=== PATIENT | male | born 1960 | race Caucasian/White ===

== ENCOUNTER 2018-06-11 09:48 | Outpatient (CLI) | payer MEDICARE, MEDICAID ==
--- NOTE | 2018-06-11 11:30 | NUR ---
Patient ambulated independently from [facility] accompanied by his girlfriend and was admitted to outpatient wound care for physician visit with Vimal Newsome MD. Placed in contact isolation precautions per hospital policy. Dressing removed. New patient assessment completed with review of patient's medical history and current medications. 1045 - Dr. Newsome at bedside accompanied by RN. Wound assessed by MD; orders written. Plan of care discussed with patient. Dressings placed per MD orders. Patient instructed on the signs and symptoms of infection and to call the Wound Center if any occur or to go to the ED if we are closed: Increased pain in wound Increase in drainage from the wound Redness in the skin surrounding the wound Bleeding from the wound Temperature of 101 or greater Patient instructed that the weight of their body puts a large amount of pressure on their wounds. This pressure keeps the new tissue from growing and inhibits new blood vessels from forming. Explained that, if they continue to bear weight on a body part that has a wound, the time it takes to heal the wound increases, the wound may get worse or the wound may not heal at all. Patient verbalized understanding of all discharge instructions and plan of care and ambulated independently accompanied by his out to [facility] in stable condition with no sign or symptom of distress at time of discharge.
[2018-06-11] MEDS ORDERED: NO HOME MEDS (14:32)
== END 2018-06-11 11:26 | disposition home or self-care (01) ==
LOC: WOUND CARE 09:48
PROVIDERS: ATTEND Surgery
DX: L97.512 Non-pressure chronic ulcer of other part of right foot with fat layer exposed (principal); J45.909 Unspecified asthma, uncomplicated; G89.29 Other chronic pain
CPT/HCPCS: 73620; G0463; A6196; A6446; L3260

== ENCOUNTER 2018-06-18 10:04 | Outpatient (CLI) | payer MEDICARE, MEDICAID ==
[~2018-06-18 10:04] MED LIST: NO HOME MEDS
--- NOTE | 2018-06-18 14:51 | NUR ---
Patient ambulated independently from [facility] and was admitted to outpatient wound care for physician visit with Vimal Newsome MD. Dressing removed and wound cleansed. Patient assessed for changes in conditions, medications and medical history. Dr. Newsome at bedside accompanied by RN. Wound assessed and no debridement was done. Plan of care discussed with patient. Dressings placed per MD orders. Patient instructed on the signs and symptoms of infection and to call the Wound Center if any occur or to go to the ED if we are closed: Increased pain in wound Increase in drainage from the wound Redness in the skin surrounding the wound Bleeding from the wound Temperature of 101 or greater Patient instructed that the weight of their body puts a large amount of pressure on their wounds. This pressure keeps the new tissue from growing and inhibits new blood vessels from forming. Explained that, if they continue to bear weight on a body part that has a wound, the time it takes to heal the wound increases, the wound may get worse or the wound may not heal at all. Patient verbalized understanding of all discharge instructions and plan of care and ambulated independently out to [facility] in stable condition with no sign or symptom of distress at time of discharge. Addendum: 06/18/18 at 1453 by Lizbeth Kelsey RN Amended: Links added.
== END 2018-06-18 11:26 | disposition home or self-care (01) ==
LOC: WOUND CARE 10:04
PROVIDERS: ATTEND Surgery
DX: L97.512 Non-pressure chronic ulcer of other part of right foot with fat layer exposed (principal); J45.909 Unspecified asthma, uncomplicated; G89.29 Other chronic pain
CPT/HCPCS: A4414; G0463

== ENCOUNTER 2018-10-27 18:36 | Inpatient (IN) | payer MEDICARE, MEDICAID ==
[~2018-10-27] VITALS: Ht 172.7 cm; Wt 73.2 kg
[2018-10-27] MEDS ORDERED: ibuprofen tablet 400 MG TABLET PO ONE (19:20)
[2018-10-27] MEDS ORDERED: HYDROcodone/acetaminophen 5mg/325mg tablet PO ONE (19:20)
[2018-10-27] MEDS ORDERED: ibuprofen 200mg tablet PO ONE (19:25)
[2018-10-27 20:07] LABS: BASOPHILS # (AUTO) 0.1 X10'3 (0-0.2); BASOPHILS % (AUTO) 0.3 % (0-1); EOSINOPHILS % (AUTO) 0.1 % (0-6); LYMPHOCYTES # (AUTO) 2.4 X10'3 (1.1-4.8); LYMPHOCYTES % (AUTO) 14.8 % (21-51); MEAN CORPUSCULAR HEMOGLOBIN 30.9 PG (27.0-31.0); MEAN CORPUSCULAR HGB CONC 34.1 g/dL (33.0-36.5); MEAN CORPUSCULAR VOLUME 90.5 FL (78-98); MEAN PLATELET VOLUME 7.3 FL (7.4-10.4); MONOCYTES # (AUTO) 2.3 X10'3 (0-0.9); MONOCYTES % (AUTO) 13.7 % (2-12); NEUTROPHILS # (AUTO) 11.6 X10'3 (1.8-7.7); NEUTROPHILS % (AUTO) 71.1 % (42-75); PLATELET COUNT 224 X10'3 (140-440); RED BLOOD COUNT 5.19 X10'6 (4.70-6.10); RED CELL DISTRIBUTION WIDTH 14.3 % (11.5-14.5); WHITE BLOOD COUNT 16.4 X10'3 (4.5-11.0)
[2018-10-27 20:18] LABS: ALANINE AMINOTRANSFERASE 25 U/L (12-78); ALBUMIN 3.6 G/DL (3.4-5.0); ALBUMIN/GLOBULIN RATIO 0.8 (1.1-1.5); ALKALINE PHOSPHATASE 90 IU/L (46-116); ANION GAP 11 (8-16); ASPARTATE AMINO TRANSFERASE 22 U/L (10-37); BILIRUBIN,TOTAL 1.5 MG/DL (0.1-1.0); BLOOD UREA NITROGEN 40 MG/DL (7-18); CALCIUM 9.7 MG/DL (8.5-10.1); CHLORIDE 98 MMOL/L (99-107); CREATININE 3.64 MG/DL (0.60-1.10); GLUCOSE 126 MG/DL (70-104); POTASSIUM 4.3 MMOL/L (3.5-5.1); SODIUM 134 MMOL/L (135-145); TOTAL CARBON DIOXIDE 25.1 MMOL/L (24-32); TOTAL PROTEIN 8.4 G/DL (6.4-8.2); eGFR 17 ML/MIN
[2018-10-27 20:44] LABS: TOTAL CELLS COUNTED 100
[2018-10-27 20:45] LABS: PLATELET ESTIMATE NORMAL
[2018-10-27] MEDS ORDERED: vancomycin/NS 1 GM ADD-VANTAGE 250 ML IV ONE (20:50)
[2018-10-27] MEDS ORDERED: normal saline 1000ML IV soln IVB ONE (20:50)
--- NOTE | 2018-10-27 21:28 | NUR ---
ATTEMPTED IV X2 UNSUCCESSFUL.
--- NOTE | 2018-10-27 21:31 | NUR ---
TRANSFERRED PT ROOM 12 VIA WHEELCHAIR. REPORT GIVEN TO ANANDA
--- NOTE | 2018-10-27 21:39 | NUR ---
ASSUMED CARE OF PT FROM NILE RESENDIZ, HOSPITALIST AT BEDSIDE TO [facility]
[2018-10-27 21:50] LABS: CREATINE KINASE 485 U/L (39-308)
[2018-10-27] MEDS ORDERED: ondansetron/PF 4mg/2ml inj IV PRN (21:50)
[2018-10-27] MEDS ORDERED: acetaminophen 325mg tablet PO PRN (21:50)
[2018-10-27] MEDS: HYDROcodone/acetaminophen 5mg/325mg tablet PO PRN (22:05)
[2018-10-27] MEDS: normal saline 1000ml 1,000 ML IV SCH (22:05)
--- NOTE | 2018-10-27 22:29 | NUR ---
PT RECEIVING 2ND LITER NS BOLUS, IV TO RT FOREARM IS PATENT AND CLEAR
--- NOTE | 2018-10-27 22:43 | NUR ---
PT IS EATING TACO CALERO BROUGHT IN BY FAMILY
--- NOTE | 2018-10-27 22:48 | NUR ---
PT HAS RECEIVED 2ND LITER NS, GOING TO FLOOR, 4013 AMB WITH STEADY GAIT TO WHEELCHAIR
[2018-10-27 23:45] VITALS: BP 145/83
[2018-10-28 01:34] LABS: URINE AMPHETAMINE SCREEN POSITIVE (Neg); URINE BARBITUATE SCREEN NEGATIVE (Neg); URINE BENZODIAZEPINES SCREEN NEGATIVE (Neg); URINE CANNABINOID SCREEN POSITIVE (Neg); URINE COCAINE SCREEN NEGATIVE (Neg); URINE METHADONE SCREEN NEGATIVE (Neg); URINE OPIATE SCREEN POSITIVE (Neg); URINE PHENCYCLIDINE SCREEN NEGATIVE (Neg)
[2018-10-28] MEDS: HYDROcodone/acetaminophen 5mg/325mg tablet PO PRN ×3 (02:10→14:06)
[2018-10-28] MEDS: DEXTROSE 5% IV SCH ×3 (02:10→14:05)
[2018-10-28] MEDS: CLINDAMYCIN PHOSPHATE IV SCH ×3 (02:10→14:05)
[2018-10-28] MEDS: WATER IV SCH ×3 (02:10→14:05)
--- NOTE | 2018-10-28 05:47 | NUR ---
In agreement with and have reviewed all charting and med pass completed by Rosa RESENDIZ for the shift time frame.
[2018-10-28 06:00] VITALS: BP 122/90
--- NOTE | 2018-10-28 06:14 | NUR ---
Gave report to Bernice RESENDIZ.
[2018-10-28] MEDS ORDERED: albuterol 2.5 MG/3 ML nebule NEB PRN (07:45)
--- NOTE | 2018-10-28 07:48 | NUR ---
paged RT to come give PRN treatment, will continue to monitor
[2018-10-28] MEDS ORDERED: heparin, porcine 5000 units/ml vial SQ SCH (08:00)
[2018-10-28 08:21] LABS: BASOPHILS # (AUTO) 0.1 X10'3 (0-0.2); BASOPHILS % (AUTO) 0.4 % (0-1); EOSINOPHILS # (AUTO) 0.1 X10'3 (0-0.9); EOSINOPHILS % (AUTO) 0.4 % (0-6); HEMATOCRIT 42.1 % (42.0-52.0); HEMOGLOBIN 14.1 g/dl (14.0-17.9); LYMPHOCYTES # (AUTO) 2.4 X10'3 (1.1-4.8); MEAN CORPUSCULAR HEMOGLOBIN 30.7 PG (27.0-31.0); MEAN CORPUSCULAR HGB CONC 33.6 g/dL (33.0-36.5); MEAN CORPUSCULAR VOLUME 91.3 FL (78-98); MEAN PLATELET VOLUME 7.6 FL (7.4-10.4); MONOCYTES % (AUTO) 13.9 % (2-12); NEUTROPHILS # (AUTO) 10.2 X10'3 (1.8-7.7); NEUTROPHILS % (AUTO) 69.3 % (42-75); PLATELET COUNT 209 X10'3 (140-440); RED BLOOD COUNT 4.61 X10'6 (4.70-6.10); RED CELL DISTRIBUTION WIDTH 14.5 % (11.5-14.5); WHITE BLOOD COUNT 14.7 X10'3 (4.5-11.0)
[2018-10-28] MEDS ORDERED: MELO-102 PO (08:29)
[2018-10-28 08:36] LABS: ALANINE AMINOTRANSFERASE 23 U/L (12-78); ALBUMIN 2.8 G/DL (3.4-5.0); ALBUMIN/GLOBULIN RATIO 0.7 (1.1-1.5); ALKALINE PHOSPHATASE 77 IU/L (46-116); ANION GAP 10 (8-16); ASPARTATE AMINO TRANSFERASE 25 U/L (10-37); BILIRUBIN,TOTAL 1.1 MG/DL (0.1-1.0); BLOOD UREA NITROGEN 37 MG/DL (7-18); BUN/CREATININE RATIO 13.6 (5.4-32.0); CALCIUM 8.4 MG/DL (8.5-10.1); CHLORIDE 104 MMOL/L (99-107); CREATININE 2.73 MG/DL (0.60-1.10); GLUCOSE 86 MG/DL (70-104); POTASSIUM 4.4 MMOL/L (3.5-5.1); SODIUM 138 MMOL/L (135-145); TOTAL CARBON DIOXIDE 24.2 MMOL/L (24-32); TOTAL PROTEIN 6.9 G/DL (6.4-8.2); eGFR 24 ML/MIN
[2018-10-28 10:00] VITALS: BP 137/68
[2018-10-28] MEDS: normal saline 1000ml 1,000 ML IV SCH (12:32)
--- NOTE | 2018-10-28 16:40 | NUR ---
Pt pressed call light and requested to leave AMA. Went to pts room. Pts girlfriend present. Pt stated "If I'm not going to get the pain medications that I need, then I have no reason to stay." Pt signed AMA form. Dr. Lozada notified at 1650.
== END 2018-10-28 16:40 | disposition left against medical advice (07) | DRG 683 ==
LOC: ER 18:37 → ORTHO 4S 22:07 → CMPBEDREQ 22:45
PROVIDERS: ADMIT Internal Medicine; ATTEND Hospitalist
DX: N17.9 Acute kidney failure, unspecified (principal); L03.317 Cellulitis of buttock; S49.92XA Unspecified injury of left shoulder and upper arm, initial encounter; F12.90 Cannabis use, unspecified, uncomplicated; G89.29 Other chronic pain; E86.0 Dehydration; I12.9 Hypertensive chronic kidney disease with stage 1 through stage 4 chronic kidney disease, or unspecified chronic kidney disease; W22.01XA Walked into wall, initial encounter; N18.9 Chronic kidney disease, unspecified; F15.90 Other stimulant use, unspecified, uncomplicated; Z53.21 Procedure and treatment not carried out due to patient leaving prior to being seen by health care provider; F17.210 Nicotine dependence, cigarettes, uncomplicated; M25.512 Pain in left shoulder; M25.511 Pain in right shoulder; M54.9 Dorsalgia, unspecified; R21 Rash and other nonspecific skin eruption; Y93.89 Activity, other specified; Y92.89 Other specified places as the place of occurrence of the external cause; Y99.8 Other external cause status
CPT/HCPCS: 36415; 73030; 80053; 80305; 82550; 84145; 85025; 87081; 94640; 94760; 99285; G0378; J1644; J3370; J3490; J7030; J7060

== ENCOUNTER 2018-10-31 01:40 | Emergency (ER) | payer MEDICARE, MEDICAID ==
[~2018-10-31] VITALS: Ht 172.7 cm; Wt 75.0 kg
[~2018-10-31 01:40] MED LIST changes: +MELO-102 PO; -NO HOME MEDS
[2018-10-31 01:43] VITALS: BP 166/107
[2018-10-31] MEDS ORDERED: sulfamethoxazole/trimethoprim DS (800/160mg) tablet PO ONE (03:15)
[2018-10-31] MEDS ORDERED: fluconazole 100mg tablet PO ONE (03:15)
[2018-10-31] MEDS ORDERED: SULF1TAB48 PO (03:16)
[2018-10-31] MEDS ORDERED: FLUC200T PO (03:16)
[2018-10-31] MEDS ORDERED: acetaminophen 325mg tablet PO ONE (03:20)
[2018-10-31] MEDS ORDERED: normal saline 1000ML IV soln IVB ONE (03:25)
== END 2018-10-31 04:24 | disposition home or self-care (01) ==
LOC: ER 01:41
DX: B49 Unspecified mycosis (principal); M25.512 Pain in left shoulder; F12.90 Cannabis use, unspecified, uncomplicated; Z79.899 Other long term (current) drug therapy
CPT/HCPCS: 99284; J7030; 99283